=== PATIENT | female | born 1975 | race Caucasian/White ===

== ENCOUNTER → 2017-07-06 | Outpatient (CLI) | payer OTHER ==
[~2017-07-06] MED LIST: ALPRAZOLAM0.5 MG PO; MIRENA52 MG IU; PHENERGAN 25MG.25 M1 PO; TOPROL XL 50MG50 MG PO
[2017-07-06 11:34] LABS: URINE BILIRUBIN - DIPSTICK NEGATIVE (NEG); URINE BLOOD NEGATIVE (NEG)
[2017-07-06 12:34] LABS: HEMOGLOBIN 13.4 g/dL (12.2-16.2)
[2017-07-06 12:35] LABS: LYMPH # 1.4 K/mm3 (0.7-4.5); LYMPH % 22.8 % (10-50.0)
[2017-07-06 12:44] LABS: BUN 10 mg/dL (7-18)
[2017-07-06 12:45] LABS: GFR (ESTIMATED) 110 ML/MIN (59-)
[2017-07-07 08:43] LABS: RA Latex Turbid. <10.0 IU/mL (0.0-13.9)
[2017-07-08 03:36] LABS: CCP Antibodies IgG/IgA 7 units (0-19)
== END ==
LOC: LAB 10:24
PROVIDERS: Nurse Practitioner Family
DX: E03.9 Hypothyroidism, unspecified (principal); M25.50 Pain in unspecified joint

== ENCOUNTER → 2017-07-07 | Outpatient (CLI) | payer OTHER ==
[2017-07-10 16:37] LABS: Antinuclear Antibodies, IFA Negative (.)
== END ==
LOC: LAB 14:20
PROVIDERS: Nurse Practitioner Family
DX: E03.9 Hypothyroidism, unspecified (principal); M25.50 Pain in unspecified joint

== ENCOUNTER → 2017-07-24 | Outpatient (CLI) | payer OTHER ==
--- NOTE | 2017-07-24 11:09 | RADIOLOGY REPORT PS360 ---
HAND-RT 3 VIEWS HISTORY: Right hand pain ARTHRALGIA MULTIPLE SITES ORDERING PHYSICIAN: Mahnaz Abreu APRN PATIENT AGE: 42 years COMPARISON: None FINDINGS: No fracture or dislocation. No lytic or blastic change. There is normal mineralization. The joint spaces are well-preserved. No significant degenerative/arthritic changes. No erosive changes evident. IMPRESSION: Negative right hand, no acute finding
--- NOTE | 2017-07-24 11:10 | RADIOLOGY REPORT PS360 ---
HAND-LT-3 VIEWS HISTORY: ARTHRALGIA MULTIPLE SITES ORDERING PHYSICIAN: Mahnaz Abreu APRN PATIENT AGE: 42 years COMPARISON: None FINDINGS: No fracture or dislocation. No lytic or blastic change. There is normal mineralization. The joint spaces are well-preserved. No significant degenerative/arthritic changes. No erosive changes evident. IMPRESSION: Negative left hand, no acute finding
== END ==
LOC: RAD 09:52
DX: M25.50 Pain in unspecified joint (principal); M79.641 Pain in right hand; M79.642 Pain in left hand

== ENCOUNTER 2017-08-26 13:03 | Emergency (ER) | payer OTHER ==
[~2017-08-26] VITALS: Ht 165.1 cm; Wt 68.0 kg
--- OUTSIDE RECORDS SUMMARY | 2017-08-26 13:06 | External Medical Summary Rpt | CCD ---
Author Author , PATRICIA Organization PATRICIA Address Unknown Phone [email or web address] Purpose Continuity of Care Document - 03-05-2017 through 2016 Results Labs Lab Lab Date Result Refere Interp Status Commen Order Detail nces retati t Range on Urinalysis dipstick W Reflex Microscopic panel in Urine (07-06-2017 10:27) Bacteri NONE O complet a 017 ed [Presen 10:27 ce] in Urine sedimen t by Light microsc opy Hyaline OCC NONE complet casts 017 ed [Presen 10:27 ce] in Urine sedimen t by Light microsc opy Erythro 3-5 0 complet cytes 017 ed [Presen 10:27 ce] in Urine sedimen t by Light microsc opy Epithel 5-10 0#/hp complet ial 017 f - ed cells.s 10:27 5#/hp quamous f [Presen ce] in Urine sedimen t by Microsc opy high power field Urinalysis dipstick W Reflex Microscopic panel in Urine (07-06-2017 10:27) Appeara CLEAR CLEAR complet nce of 017 ed Urine 10:27 Bilirub NEGATIV NEG complet in 017 E ed [Presen 10:27 ce] in Urine by Test strip Erythro NEGATIV NEG complet cytes 017 E ed [Presen 10:27 ce] in Urine Color YELLOW YELLOW complet of 017 ed Urine 10:27 Ketones NEGATIV NEG complet 017 E ed [Presen 10:27 ce] in Urine by Automat ed test strip Mucus NEGATIV NEG complet [Presen 017 E ed ce] in 10:27 Urine sedimen t by Light microsc opy Nitrite NEGATIV NEG complet 017 E ed [Presen 10:27 ce] in Urine by Test strip Urobili -28-2 0.2 NEG complet nogen 017 ed [Presen 10:27 ce] in Urine by Test strip
--- OUTSIDE RECORDS SUMMARY | 2017-08-26 13:06 | External Medical Summary Rpt | CCD ---
Author Author , PATRICIA Organization PATRICIA Address Unknown Phone [email or web address] Purpose Continuity of Care Document - 03-05-2017 [...]
--- OUTSIDE RECORDS SUMMARY | 2017-08-26 13:06 | External Medical Summary Rpt | CCD ---
Author Author [employer] Organization [employer] Address Unknown Phone Unavailable Purpose Continuity of Care Document - through 2016
--- OUTSIDE RECORDS SUMMARY | 2017-08-26 13:06 | External Medical Summary Rpt | CCD ---
Demographics Preferred Language Nigerien Marital Status Unknown Mandaeism Affiliation Unknown Race Unknown Ethnic Group Unknown Author Author , PATRICIA GOMEZ Address Unknown Phone Immunization No patient found.
--- OUTSIDE RECORDS SUMMARY | 2017-08-26 13:06 | External Medical Summary Rpt | CCD ---
Demographics Preferred Language Citizen Of [place] Marital Status Unknown Samaritan Affiliation Unknown Race Unknown Ethnic Group Unknown Author Author , PATRICIA GOMEZ Address Unknown Phone Immunization No patient found.
--- OUTSIDE RECORDS SUMMARY | 2017-08-26 13:07 | External Medical Summary Rpt ---
Author Author JARRELLDANTE [employer], [facility] [employer] Organization [employer] Address Unknown Phone Unavailable Results Antinuclear Antibodies, IFA Observa Value Referen Units Interpr Notes Date tion ce etation Range Nuclear . No No Negative Sep 29 Ab informati informati 2017 2:20 [Titer] on in on in <1:80Bord PM in Serum source source soraya by data data 1:80Posit Immunoflu yolanda orescence >1:80Perf ormed at: [facility] [id number] Balance Truing Inspector: Ayush Blackwood PhD, Phone: [phone] Erythrocyte sedimentation rate by Westergren method Observa Value Referen Units Interpr Notes Date tion ce etation Range Erythrocy 0 - 20 mm/hr Normal No Sep 29 te informati 2017 2:20 sedimenta on in PM tion rate source by data Westergre n method Comprehensive metabolic 2000 panel in Serum or Plasma Observa Value Referen Units Interpr Notes Date tion ce etation Range Albumin/G 1.1 - 1.8 No Normal No Sep 28 lobulin informati informati 2017 [Mass on in on in 10:27 AM ratio] in source source Serum or data data Plasma Albumin 3.4 - 5.0 gm/dL Normal No Sep 28 [Mass/vol informati 2017 ume] in on in 10:27 AM Serum or source Plasma data Alkaline 46 - 116 U/L Normal No Sep 28 phosphata informati 2017 se on in 10:27 AM [Enzymati source c data activity/ volume] in Serum or Plasma Bilirubin 0.2 - 1.0 mg/dL Normal No Sep 28 .total informati 2017 [Mass/vol on in 10:27 AM ume] in source Serum or data Plasma Urea 7 - 18 mg/dL Normal No Sep 28 nitrogen informati 2017 [Mass/vol on in 10:27 AM ume] in source Serum or data Plasma Calcium 8.5 - mg/dL Normal No Sep 28 [Mass/vol 10.1 informati 2017 ume] in on in 10:27 AM Serum or source Plasma data Chloride 98 - 107 mmoL/L Normal No Sep 28 [Moles/vo informati 2017 lume] in on in 10:27 AM Serum or source Plasma data Carbon 21.0 - mmoL/L Normal No Sep 28 dioxide, 32.0 informati 2017 total on in 10:27 AM [Moles/vo source lume] in data Serum or Plasma Creatinin 0.55 - mg/dL Normal No Sep 28 e 1.02 informati 2017 [Mass/vol on in 10:27 AM ume] in source Serum or data Plasma Estimated 59- ML/MIN No REFERENCE Sep 28 informati RANGE: 2017 glomerula on in >60 10:27 AM r source ML/MIN/1. filtratio data 73 SQUARE n rate METERSIf (GF this patient is -A merican, then multiply theresult by 1.210. Globulin 1.3 - 3.2 gm/dL Normal No Sep 28 [Mass/vol informati 2017 ume] in on in 10:27 AM Serum source data Glucose 74 - 106 mg/dL Normal No Sep 28 [Mass/vol informati 2017 ume] in on in 10:27 AM Serum or source Plasma data Potassium 3.5 - 5.1 mmoL/L Normal No Sep 28 informati 2017 [Moles/vo on in 10:27 AM lume] in source Serum or data Plasma Sodium 136 - 145 mmoL/L Normal No Sep 28 [Moles/vo informati 2017 lume] in on in 10:27 AM Serum or source Plasma data Aspartate 15 - 37 U/L Low No Sep informati 2016 aminotran on in 10:27 AM sferase source [Enzymati data c activity/ volume] in Serum or Plasma Alanine 12 - 78 U/L Normal No Sep 28 aminotran informati 2017 sferase on in 10:27 AM [Enzymati source c data activity/ volume] in Serum or Plasma Protein 6.4 - 8.2 gm/dL Normal No Sep 28 [Mass/vol informati 2017 ume] in on in 10:27 AM Serum or source Plasma data Thyrotropin [Units/volume] in Serum or Plasma Observa Value Referen Units Interpr Notes Date tion ce etation Range Thyrotrop 0.358 - uIU/ml No No Sep 28 in 3.740 informati informati 2017 [Units/vo on in on in 10:27 AM lume] in source source Serum or data data Plasma Urate [Mass/volume] in Serum or Plasma Observa Value Referen Units Interpr Notes Date tion ce etation Range Urate 2.6 - 7.2 mg/dL Normal No Sep 28 [Mass/vol informati 2016 ume] in on in 10:27 AM Serum or source Plasma data CBC W Auto Differential panel in Blood Observa Value Referen Units Interpr Notes Date tion ce etation Range Granulocy 1.8 - 7.8 K/mm3 Normal No Sep 28 jagdish informati 2016 [#/volume on in 10:27 AM ] in source Blood by data Automated count Granulocy 37.0 - % Normal No Sep 28 jagdish/100 80.0 informati 2016 leukocyte on in 10:27 AM s in source Blood by data Automated count Hematocri 37.0 - % Normal No Sep 28 t [Volume 47.0 informati 2017 on in 10:27 AM Fraction] source of Blood data Hemoglobi 12.2 - g/dL Normal No Sep 28 n 16.2 informati 2016 [Mass/vol on in 10:27 AM ume] in source Blood data Lymphocyt 0.7 - 4.5 K/mm3 Normal No Sep 28 es informati 2016 [#/volume on in 10:27 AM ] in source Unspecifi data ed specimen by Automated count Lymphocyt 10 - 50.0 % Normal No Sep 28 es informati 2016 [#/volume on in 10:27 AM ] in source Unspecifi data ed specimen by Automated count Erythrocy 27 - 31.2 pg High No Sep 28 te mean informati 2017 corpuscul on in 10:27 AM ar source hemoglobi data n [Entitic mass] Erythrocy 31.8 - g/dl Normal No Sep 28 te mean 35.4 informati 2017 corpuscul on in 10:27 AM ar source hemoglobi data n concentra tion [Mass/vol ume] by Automated count Erythrocy 82.2 - fL Normal No Sep 28 te mean 97.8 informati 2016 corpuscul on in 10:27 AM ar volume source [Entitic data volume] by Automated count Monocytes 0.1 - 1.0 K/mm3 Normal No Sep 28 inform2016 [#/volume on in 10:27 AM ] in source Blood by data Automated count Monocytes 1.7 - 9.3 % Normal No Sep 28 /100 informati 2016 leukocyte on in 10:27 AM s in source Blood by data Automated count Platelets 142 - 424 K/mm3 Normal No Sep 28 informati 2016 [#/volume on in 10:27 AM ] in source Blood data Erythrocy 4.2 - 5.4 M/mm3 Low No Sep 28 jagdish informati 2016 [#/volume on in 10:27 AM ] in source Amniotic data fluid Erythrocy 11.5 - % Normal No Sep 28 te 17.5 informati 2016 distribut on in 10:27 AM ion width source [Entitic data volume] by Automated count Leukocyte 4.8 - K/mm3 Normal No Sep 28 s 10.8 informati 2016 [#/volume on in 10:27 AM ] in source Blood data Comprehensive metabolic 2000 panel in Serum or Plasma Observa Value Referen Units Interpr Notes Date tion ce etation Range Albumin/G 1.1 - 1.8 No Normal No Sep 28 lobulin informati informati 2016 [Mass on in on in 10:27 AM ratio] in source source Serum or data data Plasma Albumin 3.4 - 5.0 gm/dL Normal No Sep 28 [Mass/vol informati 2016 ume] in on in 10:27 AM Serum or source Plasma data Alkaline 46 - 116 U/L Normal No Sep 28 phosphata informati 2016 se on in 10:27 AM [Enzymati source c data activity/ volume] in Serum or Plasma Bilirubin 0.2 - 1.0 mg/dL Normal No Sep 28 .total informati 2016 [Mass/vol on in 10:27 AM ume] in source Serum or data Plasma Urea 7 - 18 mg/dL Normal No Sep 28 nitrogen informati 2016 [Mass/vol on in 10:27 AM ume] in source Serum or data Plasma Calcium 8.5 - mg/dL Normal No Sep 28 [Mass/vol 10.1 informati 2016 ume] in on in 10:27 AM Serum or source Plasma data Chloride 98 - 107 mmoL/L Normal No Sep 28 [Moles/vo informati 2017 lume] in on in 10:27 AM Serum or source Plasma data Carbon 21.0 - mmoL/L Normal No Sep 28 dioxide, 32.0 informati 2016 total on in 10:27 AM [Moles/vo source lume] in data Serum or Plasma Creatinin 0.55 - mg/dL Normal No Sep 28 e 1.02 inform2016 [Mass/vol on in 10:27 AM ume] in source Serum or data Plasma Estimated 59- ML/MIN No REFERENCE Sep 28 informati RANGE: 2017 glomerula on in >60 10:27 AM r source ML/MIN/1. filtratio data 73 SQUARE n rate METERSIf (GF this patient is -A merican, then multiply theresult by 1.210. Globulin 1.3 - 3.2 gm/dL Normal No Sep 28 [Mass/vol informati 2016 ume] in on in 10:27 AM Serum source data Glucose 74 - 106 mg/dL Normal No Sep [Mass/vol informati 2016 ume] in on in 10:27 AM Serum or source Plasma data Potassium 3.5 - 5.1 mmoL/L Normal No Sep inform2016 [Moles/vo on in 10:27 AM lume] in source Serum or data Plasma Sodium 136 - 145 mmoL/L Normal No Jul 06 [Moles/vo informati 2016 lume] in on in 10:27 AM Serum or source Plasma data Aspartate 15 - 37 U/L Low No Sep inform2016 aminotran on in 10:27 AM sferase source [Enzymati data c activity/ volume] in Serum or Plasma Alanine 12 - 78 U/L Normal No Sep 28 aminotran inform2016 sferase on in 10:27 AM [Enzymati source c data activity/ volume] in Serum or Plasma Protein 6.4 - 8.2 gm/dL Normal No Sep 28 [Mass/vol informati 2016 ume] in on in 10:27 AM Serum or source Plasma data Thyrotropin [Units/volume] in Serum or Plasma Observa Value Referen Units Interpr Notes Date tion ce etation Range Thyrotrop 0.358 - uIU/ml No No Sep 28 in 3.740 informati informati 2016 [Units/vo on in on in 10:27 AM lume] in source source Serum or data data Plasma CBC W Auto Differential panel in Blood Observa Value Referen Units Interpr Notes Date tion ce etation Range Granulocy 1.8 - 7.8 K/mm3 Normal No Sep 28 jagdish 2016 [#/volume on in 10:27 AM ] in source Blood by data Automated count Granulocy 37.0 - % Normal No Sep 28 jagdish/100 80.0 informati 2016 leukocyte on in 10:27 AM s in source Blood by data Automated count Hematocri 37.0 - % Normal No Sep 28 t [Volume 47.0 informati 2016 on in 10:27 AM Fraction] source of Blood data Hemoglobi 12.2 - g/dL Normal No Sep 28 n 16.2 informati 2016 [Mass/vol on in 10:27 AM ume] in source Blood data Lymphocyt 0.7 - 4.5 K/mm3 Normal No Sep 28 es informati 2016 [#/volume on in 10:27 AM ] in source Unspecifi data ed specimen by Automated count Lymphocyt 10 - 50.0 % Normal No Sep 28 es informati 2016 [#/volume on in 10:27 AM ] in source Unspecifi data ed specimen by Automated count Erythrocy 27 - 31.2 pg High No Sep 28 te mean inform2016 corpuscul on in 10:27 AM ar source hemoglobi data n [Entitic mass] Erythrocy 31.8 - g/dl Normal No Sep 28 te mean 35.4 informati 2017 corpuscul on in 10:27 AM ar source hemoglobi data n concentra tion [Mass/vol ume] by Automated count Erythrocy 82.2 - fL Normal No Sep 28 te mean 97.8 informati 2017 corpuscul on in 10:27 AM ar volume source [Entitic data volume] by Automated count Monocytes 0.1 - 1.0 K/mm3 Normal No Sep 28 inform2016 [#/volume on in 10:27 AM ] in source Blood by data Automated count Monocytes 1.7 - 9.3 % Normal No Sep 28 /100 informati 2017 leukocyte on in 10:27 AM s in source Blood by data Automated count Platelets 142 - 424 K/mm3 Normal No Sep 28 informati 2016 [#/volume on in 10:27 AM ] in source Blood data Erythrocy 4.2 - 5.4 M/mm3 Low No Sep 28 jagdish informati 2016 [#/volume on in 10:27 AM ] in source Amniotic data fluid Erythrocy 11.5 - % Normal No Sep 28 te 17.5 informati 2016 distribut on in 10:27 AM ion width source [Entitic data volume] by Automated count Leukocyte 4.8 - K/mm3 Normal No Sep 28 s 10.8 informati 2017 [#/volume on in 10:27 AM ] in source Blood data Urinalysis dipstick W Reflex Microscopic panel in Urine Observa Value Referen Units Interpr Notes Date tion ce etation Range Appeara CLEAR CLEAR No No No Sep 28 nce of informa informa informa 2017 Urine tion in tion in tion in 10:27 source source source AM data data data Bacteri NONE O No No No Sep a informa informa informa 2016 [Presen tion in tion in tion in 10:27 ce] in source source source AM Urine data data data sedimen t by Light microsc opy Bilirub NEGATIV NEG No No No Sep in E informa informa informa 2016 [Presen tion in tion in tion in 10:27 ce] in source source source AM Urine data data data by Test strip Erythro NEGATIV NEG No No No Sep cytes E informa informa informa 2016 [Presen tion in tion in tion in 10:27 ce] in source source source AM Urine data data data Color YELLOW YELLOW No No No Sep 28 of informa informa informa 2016 Urine tion in tion in tion in 10:27 source source source AM data data data Glucose NEG No No No Jul 06 [Mass/vol informati informati informati 2017 ume] in on in on in on in 10:27 AM Urine by source source source Test data data data strip Hyaline OCC NONE #/lpf No No Sep casts informa informa 2016 [Presen tion in tion in 10:27 ce] in source source AM Urine data data sedimen t by Light microsc opy Ketones NEGATIV NEG mg/dL No No Sep E informa informa 2016 [Presen tion in tion in 10:27 ce] in source source AM Urine data data by Automat ed test strip Mucus NEGATIV NEG No No No Jul 06 [Presen E informa informa informa 2016 ce] in tion in tion in tion in 10:27 Urine source source source AM sedimen data data data t by Light microsc opy Nitrite NEGATIV NEG No No No Sep E informa informa informa 2016 [Presen tion in tion in tion in 10:27 ce] in source source source AM Urine data data data by Test strip pH of 5.0 - 8.5 No Normal No Sep 28 Urine informati informati 2017 on in on in 10:27 AM source source data data Protein NEG mg/dL No No Jul 06 [Mass/vol informati informati 2017 ume] in on in on in 10:27 AM Urine by source source Automated data data test strip Erythro 3-5 0 rbc/hpf No No Jul 06 cytes informa informa 2017 [Presen tion in tion in 10:27 ce] in source source AM Urine data data sedimen t by Light microsc opy Specific 1.005 - No Normal No Jul 06 gravity 1.030 informati informati 2017 of Urine on in on in 10:27 AM source source data data Epithel 5-10 0 - 5 #/hpf No No Jul 06 ial informa informa 2017 cells.s tion in tion in 10:27 quamous source source AM data data [Presen ce] in Urine sedimen t by Microsc opy high power field Urobili 0.2 NEG E.U./dL No No Jul 06 nogen informa informa 2017 [Presen tion in tion in 10:27 ce] in source source AM Urine data data by Test strip Leukocyte O wbc/hpf No No Jul 06 s informati informati 2017 [#/volume on in on in 10:27 AM ] in source source Urine data data Urinalysis dipstick W Reflex Microscopic panel in Urine Observa Value Referen Units Interpr Notes Date tion ce etation Range Appeara CLEAR CLEAR No No No Jul 06 nce of informa informa informa 2017 Urine tion in tion in tion in 10:27 source source source AM data data data Bilirub NEGATIV NEG No No No Jul 06 in E informa informa informa 2017 [Presen tion in tion in tion in 10:27 ce] in source source source AM Urine data data data by Test strip Erythro NEGATIV NEG No No No Jul 06 cytes E informa informa informa 2016 [Presen tion in tion in tion in 10:27 ce] in source source source AM Urine data data data Color YELLOW YELLOW No No No Jun 28 of informa informa informa 2017 Urine tion in tion in tion in 10:27 source source source AM data data data Glucose NEG No No No Jul 06 [Mass/vol informati informati informati 2016 ume] in on in on in on in 10:27 AM Urine by source source source Test data data data strip Ketones NEGATIV NEG mg/dL No No Jul 06 E informa informa 2016 [Presen tion in tion in 10:27 ce] in source source AM Urine data data by Automat ed test strip Mucus NEGATIV NEG No No No Jul 06 [Presen E informa informa informa 2016 ce] in tion in tion in tion in 10:27 Urine source source source AM sedimen data data data t by Light microsc opy Nitrite NEGATIV NEG No No No Jul 06 E informa informa informa 2016 [Presen tion in tion in tion in 10:27 ce] in source source source AM Urine data data data by Test strip pH of 5.0 - 8.5 No Normal No Jul 06 Urine informati informati 2017 on in on in 10:27 AM source source data data Protein NEG mg/dL No No Jul 06 [Mass/vol informati informati 2016 ume] in on in on in 10:27 AM Urine by source source Automated data data test strip Specific 1.005 - No Normal No Jul 06 gravity 1.030 informati informati 2016 of Urine on in on in 10:27 AM source source data data Urobili 0.2 NEG E.U./dL No No Jul 06 nogen informa informa 2016 [Presen tion in tion in 10:27 ce] in source source AM Urine data data by Test strip Comprehensive metabolic 2000 panel in Serum or Plasma Observa Value Referen Units Interpr Notes Date tion ce etation Range Albumin/G 1.1 - 1.8 No Normal No March 05 lobulin informati informati 2016 [Mass on in on in 10:05 AM ratio] in source source Serum or data data Plasma Albumin 3.4 - 5.0 gm/dL Normal No March 05 [Mass/vol informati 2016 ume] in on in 10:05 AM Serum or source Plasma data Alkaline 46 - 116 U/L Normal No March 05 phosphata informati 2016 se on in 10:05 AM [Enzymati source c data activity/ volume] in Serum or Plasma Bilirubin 0.2 - 1.0 mg/dL Normal No March 05 .total informati 2016 [Mass/vol on in 10:05 AM ume] in source Serum or data Plasma Urea 7 - 18 mg/dL Normal No March 05 nitrogen informati 2016 [Mass/vol on in 10:05 AM ume] in source Serum or data Plasma Calcium 8.5 - mg/dL Normal No March 05 [Mass/vol 10.1 informati 2016 ume] in on in 10:05 AM Serum or source Plasma data Chloride 98 - 107 mmoL/L Normal No March 05 [Moles/vo informati 2016 lume] in on in 10:05 AM Serum or source Plasma data Carbon 21.0 - mmoL/L Normal No March 05 dioxide, 32.0 informati 2016 total on in 10:05 AM [Moles/vo source lume] in data Serum or Plasma Creatinin 0.55 - mg/dL Normal No March 05 e 1.02 informati 2016 [Mass/vol on in 10:05 AM ume] in source Serum or data Plasma Estimated 59- ML/MIN No REFERENCE March 05 informati RANGE: 2017 glomerula on in >60 10:05 AM r source ML/MIN/1. filtratio data 73 SQUARE n rate METERSIf (GF this patient is -A merican, then multiply theresult by 1.210. Globulin 1.3 - 3.2 gm/dL Normal No March 05 [Mass/vol informati 2016 ume] in on in 10:05 AM Serum source data Glucose 74 - 106 mg/dL Normal No March 05 [Mass/vol informati 2016 ume] in on in 10:05 AM Serum or source Plasma data Potassium 3.5 - 5.1 mmoL/L Normal No March 05 inform2016 [Moles/vo on in 10:05 AM lume] in source Serum or data Plasma Sodium 136 - 145 mmoL/L Normal No March 05 [Moles/vo informati 2017 lume] in on in 10:05 AM Serum or source Plasma data Aspartate 15 - 37 U/L Low No March 05 inform2016 aminotran on in 10:05 AM sferase source [Enzymati data c activity/ volume] in Serum or Plasma Alanine 12 - 78 U/L Normal No March 05 aminotran informati 2016 sferase on in 10:05 AM [Enzymati source c data activity/ volume] in Serum or Plasma Protein 6.4 - 8.2 gm/dL Normal No March 05 [Mass/vol informati 2016 ume] in on in 10:05 AM Serum or source Plasma data Lipid 1996 panel in Serum or Plasma Observa Value Referen Units Interpr Notes Date tion ce etation Range Cholester < 200 mg/dL No No March 05 ol informati 2016 [Moles/vo on in on in 10:05 AM lume] in source source Unspecifi data data ed specimen Cholester 40 - 60 MG/DL High No March 05 ol in HDL 2016 on in 10:05 AM [Mass/vol source ume] in data Serum or Plasma Cholester 0 - 130 mg/dL Normal No March 05 ol in LDL 2016 on in 10:05 AM [Mass/vol source ume] in data Serum or Plasma by calculati on Triglycer 30 - 200 mg/dL Normal No March 05 jayy 2016 [Moles/vo on in 10:05 AM lume] in source Serum or data Plasma Cholester 0 - 40 No Normal No March 05 ol in 2016 VLDL on in on in 10:05 AM [Mass/vol source source ume] in data data Serum or Plasma Thyrotropin [Units/volume] in Serum or Plasma Observa Value Referen Units Interpr Notes Date tion ce etation Range Thyrotrop 0.358 - uIU/ml Normal No March 05 in 3.740 2016 [Units/vo on in 10:05 AM lume] in source Serum or data Plasma CBC W Auto Differential panel in Blood Observa Value Referen Units Interpr Notes Date tion ce etation Range Basophils 0 - 0.2 K/MM3 Normal No March 052016 [#/volume on in 10:05 AM ] in source Blood by data Automated count Basophils 0.1 - 2.0 % Normal No March 05 /100 2016 leukocyte on in 10:05 AM s in source Blood by data Automated count Eosinophi 0.0 - 0.4 K/mm3 Normal No March 05 ls 2016 [#/volume on in 10:05 AM ] in source Blood by data Automated count Eosinophi 0.1 - % Normal No March 05 ls/100 12.0 2016 leukocyte on in 10:05 AM s in source Blood by data Automated count Granulocy 1.8 - 7.8 K/mm3 Normal No March 05 jagdish 2016 [#/volume on in 10:05 AM ] in source Blood by data Automated count Granulocy 37.0 - % Normal No March 05 jagdish/100 80.0 informati 2016 leukocyte on in 10:05 AM s in source Blood by data Automated count Hematocri 37.0 - % Normal March 05 t [Volume 47.0 informati 2016 on in 10:05 AM Fraction] source of Blood data Hemoglobi 12.2 - g/dL Normal No March 05 n 16.2 informati 2016 [Mass/vol on in 10:05 AM ume] in source Blood data Lymphocyt 0.7 - 4.5 K/mm3 Normal No March 05 es informati 2016 [#/volume on in 10:05 AM ] in source Unspecifi data ed specimen by Automated count Lymphocyt 10 - 50.0 % Normal March 05 es informati 2016 [#/volume on in 10:05 AM ] in source Unspecifi data ed specimen by Automated count Erythrocy 27 - 31.2 pg High No March 05 te mean 2016 corpuscul on in 10:05 AM ar source hemoglobi data n [Entitic mass] Erythrocy 31.8 - g/dl Normal March 05 te mean 35.4 inform2016 corpuscul on in 10:05 AM ar source hemoglobi data n concentra tion [Mass/vol ume] by Automated count Erythrocy 82.2 - fl High No March 05 te mean 97.8 informati 2016 corpuscul on in 10:05 AM ar volume source [Entitic data volume] by Automated count Monocytes 0.1 - 1.0 K/mm3 Normal March 05 inform2016 [#/volume on in 10:05 AM ] in source Blood by data Automated count Monocytes 1.7 - 9.3 % Normal No March 05 /100 informati 2016 leukocyte on in 10:05 AM s in source Blood by data Automated count Platelet 7.4 - fl Low No March 05 mean 10.4 informati 2016 volume on in 10:05 AM [Entitic source volume] data in Blood by Automated count Platelets 142 - 424 K/mm3 Normal March 05 informati 2016 [#/volume on in 10:05 AM ] in source Blood data Erythrocy 4.2 - 5.4 M/mm3 Low March 05 jagdish informati 2016 [#/volume on in 10:05 AM ] in source Amniotic data fluid Erythrocy 11.5 - % Normal No March 05 te 17.5 informati 2016 distribut on in 10:05 AM ion width source [Entitic data volume] by Automated count Leukocyte 4.8 - K/MM3 Normal No March 05 s 10.8 informati 2016 [#/volume on in 10:05 AM ] in source Blood data
--- OUTSIDE RECORDS SUMMARY | 2017-08-26 13:07 | External Medical Summary Rpt ---
[...] 1:80Posit Immunoflu yolanda orescence >1:80Perf ormed at: [facility] [place] [id number] Instructional Leader: Ayush Blackwood PhD, Phone: [phone] Erythrocyte sedimentation rate by Westergren method [...]
[2017-08-26] MEDS ORDERED: MEDROL 4MG. DOSE4 MG PO (13:41)
[2017-08-26] MEDS ORDERED: AUGMENTIN 875-1 EACH PO (13:41)
--- NOTE | 2017-08-26 13:42 | Urgent Treatment Center Report ---
History of Present Issue Date/Time Seen by Provider 08/26/17 1334 Visit Reason Pt arrived:Walked Presenting Problem:PT C/O OF SINUS PRESSURE AND DRAINAGE Location if Accident: Onset of symptoms date/time:/ or onset unknown for:MEDICAL HX UNKNOWN Have you (or family members/close friends) recently traveled outside the [place]? N If Yes, where/when: Have you had exposure to infectious disease within the past month? TB? Other? Specify: Patient states that she thinks she may have a sinus infection State that she has been having sinus pain and pressure along with drainage for several weeks now that has continued to get worse State that she thought it would get better but seems to have been getting worse over the last couple of days and she is feeling pressure under her eyes and mucous changed colors and now a yellowish brown color ALLERGIES Coded Allergies: NO KNOWN ALLERGIES (06/17/12) Home Medications Reported Medications Promethazine Hydrochloride (Phenergan 25MG Tab) 25 MG PO Q6H PRN Metoprolol Succinate Xl (Toprol Xl) 50 MG PO BID ALPRAZOLAM (Alprazolam 0.5MG) 0.25-0.5 MG PO PRN Levonorgestrel (Mirena) 52 MG IU History Medical History General Angina: No NE: No Hypertension? No Hyperlipidemia? No CHF? No COPD? No Asthma? No GERD? No Gastric ulcers? No GI Bleed? No Hernia? No Thyroid Problems? No Hypothyroidism? No CVA? No Seizures? No Diabetes? No UTI? No Stones? No BPH? No GB Disease: No Asplenia? No Hepatitis? No Sickle Cell Disease? No Arthritis? No Migraines? No Cataracts? No MRSA? No HIV? No TB? No Anxiety? No Depression? No Cancer? No Immunization HX DT/Tetanus UNKNOWN Flu [id number] Pneumonia REFUSES Surgical Hx Previous Surgery?Y WISDOM TEETH D & C SINUS SX Social History Smoking Hx Smoker: Never Smoker Tobacco: No Alcohol Alcohol: No Review of Systems All Other Systems Reviewed and Negative ENT nose congestion. Physical Exam Vital Signs Vital Signs Date Time Temp Pulse Resp B/P Pulse O2 O2 Flow FiO2 Ox Delivery Rate 08/26 1343 98.1 98 20 134/80 99 08/26 1323 98.1 98 20 134/80 99 General Appearance normal appearance, WD/WN, no apparent distress Ear, Nose, Throat sinus pain/drainage, nasal congestion, Tenderness and mild swelling maxillary sinuses report yellowish brown sticky drainage from nose Respiratory Status Yes: trachea midline, chest symmetrical, non tender chest. No: respiratory distress. Cardiovascular normal exam, regular rate/rhythm, no peripheral edema Neurologic alert, normal exam, oriented x 3 Medical Decision Making LABS/Meds/Orders Pt receiving controlled substance in ED? No Departure Departure Time of Disposition 1338 Disposition DC Home or Self Care(routine) Clinical Impression Primary Impression: Sinusitis Qualifiers: Sinusitis location: maxillary Chronicity: unspecified Qualified Code: J32.0 - Chronic maxillary sinusitis Condition STABLE Patient Instructions DI for Sinusitis, Sinus Headache, Sinusitis Additional Instructions Start antibiotic. Sinus infections may take 2-3 days to notice much improvement so be sure to use conservative measures as discussed for symptoms Flonase 2 spray in each nostril daily to help with nasal congestion, sinus an ear pressure/inflammation Lots of Fluids Sleep elevated Humidifer/vaporizer Augmentin can cause GI effects. Probiotics may help to prevent these symptoms Discharge Counseling Counseled pt/family regarding diagnosis, medications/RX, home care, follow up needs Prescriptions Current Visit Scripts Amoxicillin/Potassium Clav (Augmentin 875-125 Tablet) 1 EACH PO BID #14 TAB Methylprednisolone (Medrol Dose Javi) 4 MG PO UD #1 JAVI TAKE DIRECTED ON PACKAGING Fluticasone Propionate (Flonase 50 Mcg Nasal [place]) 2 SPRAY NA DAILY #1 BOT at 1346
[2017-08-26 13:43] VITALS: BP 134/80
[2017-08-26] MEDS ORDERED: FLONASE 50 MCG16 GM (13:46)
== END 2017-08-26 13:44 | disposition home or self-care (01) ==
LOC: UTC 13:03
DX: J32.0 Chronic maxillary sinusitis (principal)

== ENCOUNTER → 2017-09-25 | Outpatient (CLI) | payer OTHER ==
[~2017-09-25] MED LIST changes: +AUGMENTIN 875-1 EACH PO; +DELSYM30 MG/5 ML PO; +DUEXIS 26.6 MG-1 TAB PO; +FLONASE 50 MCG16 GM; +LEVOTHYROXINE0.05 M2 PO; +MEDROL 4MG. DOSE4 MG PO; +TAMIFLU 75MG CA75 MG PO
--- NOTE | 2017-09-26 07:42 | RADIOLOGY REPORT PS360 ---
KNEE-3 VIEWS-RT Ordering Physician: Mahnaz Abreu APRN Patient Age: 42 years: Female HISTORY: BURSITIS OF RT KNEE,MELANIE KNEE PAIN bilateral knee pain TECHNIQUE: 3 views right knee COMPARISON :Left knee from today FINDINGS Previous ACL repair evident the tunnel for the ACL graft most evident at the proximal tibia also seen at the distal femur. Secured by a metallic anchor at the lateral margin distal femur and by 8 screw entering the medial to the tibial tubercle at the proximal tibia... . Joint spaces well-maintained at knee No new or acute findings. Upper normal joint fluid suprapatella bursa\ Otherwise only question some possible mild soft tissue swelling overlying the patellar tendon anteriorly. Clinical correlation required. IMPRESSION: No acute findings at the right knee. Scant joint fluid evident suprapatella bursa- upper normal amount Previous ACL repair.
--- NOTE | 2017-09-26 07:44 | RADIOLOGY REPORT PS360 ---
KNEE-3 VIEWS-LT Ordering Physician: Mahnaz Abreu APRN Patient Age: 42 years: Female HISTORY: BURSITIS OF RT KNEE,MELANIE KNEE PAIN TECHNIQUE: 3 views left knee COMPARISON :Right knee from today FINDINGS Joint space well maintained. Bones well mineralized. No joint effusion. No fracture. Normal relationships. IMPRESSION: Negative left knee. . Intact. No significant findings.
== END ==
LOC: RAD 07:03
DX: M25.561 Pain in right knee (principal); M25.562 Pain in left knee; M70.51 Other bursitis of knee, right knee